=== PATIENT | female | born 1985 | race Caucasian/White ===

== ENCOUNTER 2017-03-22 19:58 | Emergency (ER) | payer MEDICARE, MEDICAID ==
[~2017-03-22] VITALS: Ht 157.5 cm; Wt 60.0 kg
[~2017-03-22 19:58] MED LIST: FLUO-1 PO; METO50TA PO; VIST50CA PO
[2017-03-22 19:59] VITALS: BP 185/116; PULSE 94; RESP 16; TEMP 98.6; O2SAT 97
[2017-03-22] MEDS ORDERED: ENBR50IN2 SQ (21:04)
--- NOTE | 2017-03-22 21:43 | PD ---
HPI Chief Complaint: ENT Complaint Time Seen by Provider: 21:17 Travel History International Travel<30 days: No Contact w/Intl Traveler<30days: No Traveled to known affect area: No History of Present Illness HPI Patient comes in complaining of right ear pain that began roughly 4 hours ago after trying a pop her ears. Patient took ibuprofen this relieved her symptoms. Patient denies any radiation of the pain. Patient has anything making it worse. History Social History Alcohol Use: No Tobacco Use: No Allergies-Medications (Allergen,Severity, Reaction): Coded Allergies: Codeine (Verified Allergy, Severe, RASH, 03/22/17) PT STATES UNAWARE OF ALLERGY Levaquin (Verified Allergy, Severe, IV SITE BURNING, 03/22/17) Reported Meds & Prescriptions Reported Meds & Active Scripts Active Reported Enbrel PF Inj (Etanercept) 50 mg/ml Syr 50 Mg SQ Q7D Metoprolol Tartrate 50 Mg Tab 50 Mg PO DAILY Review of Systems Except as stated in HPI: all other systems reviewed are Neg Physical Exam Narrative GENERAL: Well-developed, well nourished, in no acute distress, and non-ill appearing. SKIN: Focused skin assessment warm and dry. HEAD: Atraumatic. Normocephalic. EYES: Pupils equal and round. EOMI. No scleral icterus. No injection or drainage. ENT: No nasal bleeding or discharge. Mucous membranes pink and moist. Tympanic membranes pearly moreno bilaterally. There is no sign of rupture. Posterior. Erythematous without exudate. Uvula is midline. No tenderness to sinuses to palpation. NECK: Trachea midline. No cervical lymphadenopathy. Supple. No nuclear rigidity. CARDIOVASCULAR: Regular rate and rhythm. No murmur appreciated. RESPIRATORY: No accessory muscle use. No respiratory distress. Clear to auscultation. Breath sounds equal bilaterally. MUSCULOSKELETAL: No obvious deformities. No clubbing. No cyanosis. No edema. Full range of motion. NEUROLOGICAL: Awake and alert. No obvious cranial nerve deficits. Motor grossly within normal limits. Normal speech. PSYCHIATRIC: Appropriate mood and affect; insight and judgment normal. Data Data Last Documented VS Vital Signs Date Time Temp Pulse Resp B/P Pulse Ox O2 Delivery O2 Flow Rate FiO2 03/22/17 19:59 98.6 94 16 185/116 [address] [facility] Medical Screen Exam Complete: Yes Emergency Medical Condition: No Narrative Course History and physical exam findings are not consistent with an emergent medical condition. She was given the option of receiving additional care, but has declined. Therefore the appropriate counseling recommendations were discussed with the patient and she was instructed to follow-up with her primary care physician as soon as possible for reevaluation. Patient was also informed of community resources from which she can obtain additional care. She is agreeable and verbalizes an understanding of the proposed plan. The patient states she will immediately return to the emergency department if her current complaints do not improve, new symptoms arise, or emergent condition develops. Patient ambulated out of the emergency department without difficulty. Primary Impression: Encounter for medical screening examination Disposition: EDGO-ED USE ONLY Condition: Stable Kong Centeno Mar 22, 2017 21:42
== END 2017-03-22 21:33 | disposition left against medical advice (07) ==
LOC: NEPB 19:58
DX: H92.01 Otalgia, right ear (principal); Z79.899 Other long term (current) drug therapy; Z88.5 Allergy status to narcotic agent; Z88.8 Allergy status to other drugs, medicaments and biological substances
CPT/HCPCS: 99281

== ENCOUNTER → 2017-08-19 | Outpatient (CLI) | payer MEDICARE, MEDICAID ==
[~2017-08-19] MED LIST changes: +ENBR50IN2 SQ; -FLUO-1 PO; -VIST50CA PO
[2017-08-19 08:21] LABS: HEMATOCRIT 42.4 % (35.0-46.0); MEAN CORPUSCULAR HEMOGLOBIN 29.3 PG (27.0-34.0); PLATELET COUNT 314 TH/MM3 (150-450); RED BLOOD COUNT 4.93 MIL/MM3 (4.00-5.30); RED CELL DISTRIBUTION WIDTH 12.8 % (11.6-17.2); REVIEW FLAG FINAL; WHITE BLOOD COUNT 7.3 TH/MM3 (4.0-11.0)
[2017-08-19 08:46] LABS: INDIRECT BILIRUBIN 0.5 MG/DL (0.0-0.8); TOTAL BILIRUBIN ADULT 0.6 MG/DL (0.2-1.0)
[2017-08-22 23:52] LABS: HCV RNA PCR IU/ML LESS THAN 15 IU/mL (0-14); HCV RNA PCR LOGIU/ML LESS THAN 1.18 (0-1.18)
== END ==
LOC: CLAB 07:52
PROVIDERS: ATTEND Family Medicine
DX: B18.2 Chronic viral hepatitis C (principal)
CPT/HCPCS: 36415; 80076; 85027; 87522

== ENCOUNTER → 2017-11-17 | Outpatient (CLI) | payer MEDICARE, MEDICAID ==
[2017-11-17 11:51] LABS: HEMATOCRIT 42.4 % (35.0-46.0); HEMOGLOBIN 14.5 GM/DL (11.6-15.3); MEAN CELL VOLUME 87.9 FL (80.0-100.0); MEAN CORPUSCULAR HGB CONC 34.1 % (32.0-36.0); MEAN PLATELET VOLUME 7.1 FL (7.0-11.0); PLATELET COUNT 289 TH/MM3 (150-450); RED BLOOD COUNT 4.82 MIL/MM3 (4.00-5.30); RED CELL DISTRIBUTION WIDTH 13.6 % (11.6-17.2)
[2017-11-17 12:16] LABS: TOTAL BILIRUBIN ADULT 0.6 MG/DL (0.2-1.0); TOTAL PROTEIN 8.4 GM/DL (6.4-8.2)
[2017-11-17 12:18] LABS: ALBUMIN 4.2 GM/DL (3.4-5.0); DIRECT BILIRUBIN ADULT 0.1 MG/DL (0.0-0.2); INDIRECT BILIRUBIN 0.5 MG/DL (0.0-0.8)
[2017-11-22 10:50] LABS: HCV RNA PCR IU/ML LESS THAN 15 IU/mL (Not Detected)
== END ==
LOC: CLAB 11:09
PROVIDERS: ATTEND Internal Medicine
DX: B18.2 Chronic viral hepatitis C (principal)
CPT/HCPCS: 36415; 80076; 85027; 87522

== ENCOUNTER → 2017-12-13 | Outpatient (CLI) | payer MEDICARE, MEDICAID ==
[2017-12-13 11:01] LABS: AUTOMATED NEUTROPHIL # 4.6 TH/MM3 (1.8-7.7); BASOPHIL % 0.7 % (0.0-2.0); EOSINOPHIL # 0.1 TH/MM3 (0-0.4); HEMATOCRIT 42.2 % (35.0-46.0); HEMOGLOBIN 14.3 GM/DL (11.6-15.3); LYMPH % 22.3 % (9.0-44.0); LYMPHOCYTE # 1.6 TH/MM3 (1.0-4.8); MEAN CELL VOLUME 88.5 FL (80.0-100.0); MEAN CORPUSCULAR HEMOGLOBIN 29.9 PG (27.0-34.0); MEAN CORPUSCULAR HGB CONC 33.8 % (32.0-36.0); MEAN PLATELET VOLUME 7.2 FL (7.0-11.0); MONOCYTE # 0.7 TH/MM3 (0-0.9); PLATELET COUNT 272 TH/MM3 (150-450); RED BLOOD COUNT 4.77 MIL/MM3 (4.00-5.30); RED CELL DISTRIBUTION WIDTH 13.5 % (11.6-17.2)
[2017-12-13 11:09] LABS: ALBUMIN 3.8 GM/DL (3.4-5.0); ALT (GPT) 18 U/L (10-53); AST (GOT) 24 U/L (15-37); BICARBONATE 25.4 MEQ/L (21.0-32.0); BLOOD UREA NITROGEN 9 MG/DL (7-18); CALCIUM 9.3 MG/DL (8.5-10.1); CHLORIDE 110 MEQ/L (98-107); CREATININE 0.77 MG/DL (0.50-1.00); GLOMERULAR FILTRATION RATE 88 ML/MIN (>89); GLUCOSE,FASTING 77 MG/DL (74-99); SODIUM (NA) 141 MEQ/L (136-145)
[2017-12-13 11:19] LABS: ALKALINE PHOSPHATASE 70 U/L (45-117); TOTAL BILIRUBIN ADULT 0.3 MG/DL (0.2-1.0); TOTAL PROTEIN 7.8 GM/DL (6.4-8.2)
[2017-12-15 14:24] LABS: MITOGEN MINUS NIL RESULT >10.00 IU/mL; NIL RESULT 0.02 IU/mL; QUANTIFERON TB GOLD + RESULT Negative (Negative); TB ANTIGEN MINUS NIL 0.01 IU/mL
== END ==
LOC: CLAB 09:57
PROVIDERS: ATTEND Internal Medicine Rheumatology
DX: L40.51 Distal interphalangeal psoriatic arthropathy (principal); F32.9 Major depressive disorder, single episode, unspecified
CPT/HCPCS: 36415; 80053; 84443; 85025; 85652; 86140; 86480

== ENCOUNTER 2017-12-15 19:10 | Emergency (ER) | payer MEDICARE, MEDICAID ==
[~2017-12-15] VITALS: Ht 157.5 cm; Wt 55.5 kg
[2017-12-15 20:20] VITALS: PULSE 73; RESP 20; TEMP 98.7; O2SAT 96
--- NOTE | 2017-12-15 20:42 | PD ---
HPI Chief Complaint: Back/ Neck Pain or Injury Time Seen by Provider: 20:31 Travel History International Travel<30 days: No Contact w/Intl Traveler<30days: No Traveled to known affect area: No History of Present Illness HPI 32-year-old female with history of psoriatic arthritis and scalp psoriasis, presents emergency department with tender "lumps" to the posterior lateral neck, more on the left than the right which is been present off and on for the past several weeks to months. Patient denies any specific fever, chills , sore throat, changes in weight, or other constitutional symptoms. Patient recently started methotrexate several weeks ago. She sees a processor [employer] and recently had blood work and has a follow-up on the . Pain is minimal and mainly when she is pushing on it or twisting her neck. She is allergic to codeine and levofloxacin PFS Past Medical History Autoimmune Disease: Yes Hypertension: Yes Respiratory: Yes ("HISTOCYTOSIS" PER PT) Seizures: Yes Influenza Vaccination: No ?: Not LMP: 12/10/17 Tubal Ligation: Yes Past Surgical History Section: Yes Other Surgery: Yes (RT. LUNG BIOPSY 08/2007) Social History Alcohol Use: No Tobacco Use: No Substance Use: No ([facility]) Allergies-Medications (Allergen,Severity, Reaction): Coded Allergies: codeine (Unverified Allergy, Severe, RASH, 04/13/17) PT STATES UNAWARE OF ALLERGY levofloxacin (Unverified Allergy, Severe, IV SITE BURNING, 04/13/17) Reported Meds & Prescriptions Reported Meds & Active Scripts Active Reported Enbrel PF Inj (Etanercept) 50 mg/ml Syr 50 Mg SQ Q7D Metoprolol Tartrate 50 Mg Tab 50 Mg PO DAILY Review of Systems Except as stated in HPI: all other systems reviewed are Neg General / Constitutional: No: Fever Eyes: No: Visual changes HENT: Positive: Masses, No: Headaches, Vertigo, Lightheadedness, Sore Throat, Rhinitis, Rhinorrhea, Congestion, Nosebleed, Neck Stiffness, Neck Pain, Dental Difficulties, Earache (See history of present) Cardiovascular: No: Chest Pain or Discomfort Respiratory: No: Shortness of Breath Gastrointestinal: No: Abdominal Pain Genitourinary: No: Dysuria Musculoskeletal: No: Pain Skin: No Rash Neurologic: No: Weakness Psychiatric: No: Depression Endocrine: No: Polydipsia Hematologic/Lymphatic: No: Easy Bruising Physical Exam Narrative GENERAL: Patient appears in no obvious distress. SKIN: Warm and dry. Normal color. Normal turgor. Patient has several small healing psoriatic lesions along the hairline on the left greater than the right on the scalp. No significant erythema or signs of abscess per HEAD: Atraumatic. Normocephalic. EYES: Pupils equal and round. No scleral icterus. No injection or drainage. ENT: No nasal bleeding or discharge. Mucous membranes pink and moist. Pharynx is clear. Airways patent. NECK: Trachea midline. Supple with several small mildly tender palpable lymph nodes in the posterior cervical chains bilaterally more on the left than the right. CARDIOVASCULAR: Regular rate and rhythm. RESPIRATORY: No accessory muscle use. Clear to auscultation. Breath sounds equal bilaterally. GASTROINTESTINAL: Abdomen soft, non-tender, nondistended. Hepatic and splenic margins not palpable. MUSCULOSKELETAL: Extremities without clubbing, cyanosis, or edema. No obvious deformities. NEUROLOGICAL: Awake and alert. No obvious cranial nerve deficits. Motor grossly within normal limits. Five out of 5 muscle strength in the arms and legs. Normal speech. PSYCHIATRIC: Appropriate mood and affect; insight and judgment normal. Data Data Last Documented VS Vital Signs Date Time Temp Pulse Resp B/P (MAP) Pulse Ox O2 Delivery O2 Flow Rate FiO2 12/15/17 20:20 98.7 73 20 96 MDM Medical Decision Making Medical Screen Exam Complete: Yes Emergency Medical Condition: Yes Differential Diagnosis Lymphadenitis. Psoriatic arthritis. Scalp psoriasis Narrative Course I feel the lymphadenopathy is more likely due to mild chronic infection from her psoriatic scalp lesions, as opposed to significant metabolic disease. Patient is to use heat, Tylenol and ibuprofen, and follow-up with her processor [employer] as planned. Patient should return if symptoms worsen especially fever, chills, or increasing pain and swelling. Diagnosis Primary Impression: Cervical lymphadenitis Patient Instructions: Adenitis (ED), General Instructions Additional Instructions: I feel the lymphadenopathy is more likely due to mild chronic infection from her psoriatic scalp lesions, as opposed to significant metabolic disease. Patient is to use heat, Tylenol and ibuprofen, and follow-up with her [employer] as planned. Patient should return if symptoms worsen especially fever, chills, or increasing pain and swelling. Med/Other Pt SpecificInfo: Prescription(s) given Disposition: 01 DISCHARGE HOME Condition: Stable Juve Jenkins Dec 15, 2017 20:42
== END 2017-12-15 20:54 | disposition home or self-care (01) ==
LOC: NEPK 19:10
DX: I88.9 Nonspecific lymphadenitis, unspecified (principal); I10 Essential (primary) hypertension
CPT/HCPCS: 99282